=== PATIENT | male | born 1945 | race Caucasian/White ===

== ENCOUNTER 2017-04-29 04:15 | Emergency (ER) | payer OTHER ==
[~2017-04-29] VITALS: Ht 177.8 cm; Wt 90.7 kg
--- NOTE | 2017-04-29 04:36 | ED DYSPNEA/ASTHMA COMPLAINT ---
History of Present Illness General Chief Complaint: General Adult Stated Complaint: DIFF BREATHING 02 SAT 96% Source: patient Exam Limitations: no limitations Vital Signs & Intake/Output Vital Signs & Intake/Output SEE TRIAGE Allergies Coded Allergies: No Known Allergies (04/29/17) Reconcile Medications Amoxicillin/Potassium Clav (Augmentin 875-125 Tablet) 875 MG-125 MG TABLET 1 TAB PO BID INFECTION Beclomethasone Dipropionate (QVAR) 40 MCG/ACTUATION AER.W.ADAP 2 PUF INH BID ALLERGIES Rinse mouth after Triage Note: HEAD CONGESTION,CAN'T BREATHE THROUGH NOSE Triage Nurses Notes Reviewed? yes Onset: Gradual Duration: week(s): (FEW), worse persistent since (2 DAYS) Timing: recent history Severity: moderate, severe Activities at Onset: none Associated Symptoms: ALLERGIES, BLOCKED NASAL PASSAGES HPI: This is a 71-year-old male with history of hypertension, sleep apnea who presents to the ER with difficulty breathing from both nostrils for the past several weeks but getting worse overnight. He states he cannot breathe with his CPAP machine. Patient with history of deviated septum. Denies any fever or chills but states he feels like he's got lots of mucus spine. No productive cough or soreness of breath. No fever or chills. Past History Travel History Traveled to [place] past 21 day No Medical History Any Pertinent Medical History? see below for history Neurological: NONE EENT: NONE Cardiovascular: hypertension, hyperlipidemia Respiratory: SLEEP APNEA Gastrointestinal: NONE Hepatic: NONE Renal: benign prost hyperplasia Musculoskeletal: NONE Psychiatric: NONE Endocrine: NONE Blood Disorders: NONE Cancer(s): NONE Surgical History Surgical History: non-contributory Psychosocial History What is your primary language Turkmen Tobacco Use: Never used Family History Hx Contributory? No Review of Systems Review of Systems Constitutional: Denies: chills, fever. EENTM: Reports: nasal congestion. Respiratory: Denies: cough, short of breath. Cardiovascular: Denies: chest pain, palpitations. GI: Denies: abdominal pain. Genitourinary: Reports: no symptoms. Musculoskeletal: Reports: no symptoms. Skin: Reports: no symptoms. Neurological/Psychological: Reports: no symptoms. Hematologic/Endocrine: Denies: bruising, bleeding, polyuria, polydipsia. Immunologic/Allergic: Denies: splenectomy. All Other Systems: Reviewed and Negative Physical Exam Physical Exam General Appearance: well developed/nourished, alert, awake, mild distress Head: normal appearance Eyes: Bilateral: normal appearance, PERRL, EOMI. Ears, Nose, Throat: normal pharynx, BILATEARL CONGESTED NASAL PASSAGES Neck: normal inspection, supple, full range of motion Respiratory: normal breath sounds, chest non-tender, no respiratory distress Cardiovascular: regular rate/rhythm Peripheral Pulses: 2+ radial (R), 2+ radial (L) Gastrointestinal: normal bowel sounds, soft, non-tender Neurologic/Psych: no motor/sensory deficits, awake, alert, oriented x 3, normal gait Skin: intact, normal color, warm/dry Core Measures ACS in differential dx? No Severe Sepsis Present: No Septic Shock Present: No Progress Differential Diagnosis: SINUSITIS, RHINITIS Plan of Care: Current Medications Sig/Cass Start time Last Medication Dose Stop Time Status Admin Diphenhydramine HCl 12.5 MG ONCE ONE 04/29 0500 CAN (Benadryl) 04/29 0501 Initial ED EKG: none Departure Departure Time of Disposition: 453 Disposition: HOME OR SELF CARE Condition: Stable Clinical Impression Primary Impression: Sinusitis Referrals: UNKNOWN (PCP/Family) Additional Instructions: TAKE THE ANTIBIOTIC AND USE THE NASAL SPRAY DIRECTED. FOLLOW UP WITH YOUR DOCTOR IN THE OFFICE. RETURN NEEDED. Departure Forms: Customer Survey General Discharge Information Prescriptions: Current Visit Scripts Amoxicillin/Potassium Clav (Augmentin 875-125 Tablet) 1 TAB PO BID #20 TAB Beclomethasone Dipropionate (QVAR) 2 PUF INH BID #8.7 GM Rinse mouth after Critical Care Note Critical Care Note Critical Care Time: non-applicable
[2017-04-29] MEDS ORDERED: AUGMENTIN 875-1 EACH PO (04:54)
[2017-04-29] MEDS ORDERED: QVAR8.7 GM INH (04:54)
[2017-04-29 05:05] VITALS: BP 145/83
== END 2017-04-29 05:08 ==
LOC: ERH 04:15
DX: J32.9 Chronic sinusitis, unspecified (principal)